=== PATIENT | male | born 1985 | race African-American/Black ===

== ENCOUNTER 2022-05-22 05:22 | Emergency (ER) | payer OTHER, SELFPAY ==
[2022-05-22] MEDS ORDERED: Ketorolac Tromethamine 30 MG/ML VIAL ONE (06:37)
== END 2022-05-22 07:23 | disposition home or self-care (01) ==
LOC: ERS 05:22
DX: R51.9 Headache, unspecified (principal); F17.210 Nicotine dependence, cigarettes, uncomplicated
CPT/HCPCS: 70450; 96365; 96375; J1885

== ENCOUNTER 2022-08-17 18:19 | Emergency (ER) | payer SELFPAY ==
[2022-08-17 21:40] LABS: #Basophils 0.1 thou/uL (0.0-0.2); #Eosinphils 0.3 thou/uL (0.0-0.7); #Monocytes 0.6 thou/uL (0.11-0.59); #Neutrophils 3.8 thou/uL (1.40-6.50); %Basophils 1.1 % (0.0-1.0); %Eosinophils 4.4 % (0.0-10.0); %Lymphocytes 38.7 % (21.0-51.0); %Monocytes 7.7 % (0.0-10.0); %Neutrophils 48.2 % (42.0-75.0); Hemoglobin 15.3 g/dL (14.0-18.0); Mean Corpuscular HGB CONC 35.9 g/dL (32.0-36.0); Mean Corpuscular Hemoglobin 32.3 pg (27.0-31.0); Mean Platelet Volume 8.5 fL (7.4-10.4); Platelet Count 230 10x3/uL (130-400); RBC Distribution Width 12.7 % (11.5-14.5); Red Blood Cell (RBC) Count 4.74 mill/uL (4.70-6.10); White Blood Cell (WBC) Count 7.8 10x3/uL (4.8-10.8)
[2022-08-17 21:59] LABS: ALT (SGPT) 17 U/L (8-55); AST (SGOT) 22 U/L (5-34); Albumin 3.9 g/dL (3.5-5.0); Alkaline Phosphatase 65 U/L (40-110); Anion Gap 12 mmol/L (10-20); BUN (Urea Nitrogen) 15 mg/dL (8.9-20.6); Bilirubin, Total 0.3 mg/dL (0.2-1.2); CK (CPK) 256 U/L (30-200); Calc. Creatinine Clearance 0 mL/min (70-130); Calcium 9.1 mg/dL (7.8-10.44); Carbon Dioxide 20 mmol/L (22-29); Chloride 109 mmol/L (98-107); Estimated GFR 87; Globulin 1.8 g/dL (2.4-3.5); Glucose 113 mg/dL (70-105); Potassium 3.8 mmol/L (3.5-5.1); Protein, Total 5.7 g/dL (6.0-8.3); Sodium 137 mmol/L (136-145)
== END 2022-08-17 22:58 | disposition home or self-care (01) ==
LOC: ERS 18:19
DX: G56.03 Carpal tunnel syndrome, bilateral upper limbs (principal)
CPT/HCPCS: 36415; 80053; 82550; 83735; 85025; 99284

== ENCOUNTER 2022-12-20 20:50 | Emergency (ER) | payer SELFPAY ==
[2022-12-20] MEDS ORDERED: Lorazepam 1 MG TAB ONE (22:17)
== END 2022-12-20 22:29 | disposition home or self-care (01) ==
LOC: ERS 20:50
DX: F43.0 Acute stress reaction (principal); F17.210 Nicotine dependence, cigarettes, uncomplicated
CPT/HCPCS: 99283

== ENCOUNTER 2023-06-02 07:02 | Emergency (ER) | payer SELFPAY ==
[2023-06-02] MEDS ORDERED: Cephalexin 250 MG CAP ONE (07:42)
[2023-06-02] MEDS ORDERED: Sulfameth/Trimethoprim DS 800-160mg TAB ONE (07:42)
== END 2023-06-02 07:49 | disposition home or self-care (01) ==
LOC: ERS 07:02
DX: L03.011 Cellulitis of right finger (principal); F17.210 Nicotine dependence, cigarettes, uncomplicated
CPT/HCPCS: 99283

== ENCOUNTER 2023-09-22 15:28 | Emergency (ER) | payer SELFPAY | END 2023-09-22 15:42 | LOC: ERS 15:28 | DX: Z53.21 Procedure and treatment not carried out due to patient leaving prior to being seen by health care provider (principal) ==

== ENCOUNTER 2024-04-25 12:55 | Emergency (ER) | payer SELFPAY ==
[2024-04-25] MEDS ORDERED: Ketorolac Tromethamine 30 MG (1 mL) VIAL ONE (14:51)
[2024-04-25] MEDS ORDERED: HYDROcodone/Acetaminophen 10/325 mg Tablet ONE (14:51)
== END 2024-04-25 16:44 | disposition home or self-care (01) ==
LOC: ERS 12:55
DX: S52.572A Other intraarticular fracture of lower end of left radius, initial encounter for closed fracture (principal); S52.042A Displaced fracture of coronoid process of left ulna, initial encounter for closed fracture; S09.90XA Unspecified injury of head, initial encounter; T14.8XXA Other injury of unspecified body region, initial encounter; F17.210 Nicotine dependence, cigarettes, uncomplicated; Y04.8XXA Assault by other bodily force, initial encounter
CPT/HCPCS: 29125; 70450; 70486; 72125; 72220; 96372; J1885

== ENCOUNTER 2024-08-10 19:35 | Inpatient (IN) | payer SELFPAY ==
[2024-08-10] MEDS ORDERED: Ketamine In 0.9 % NaCl 50 MG/5 ML SYRINGE ONE (19:47)
[2024-08-10 20:13] LABS: #Basophils 0.13 10x3/uL (0.0-0.2); %Basophils 1.1 % (0.0-1.0); %Eosinophils 2.9 % (0.0-10.0); %Lymphocytes 39.7 % (21.0-51.0); %Monocytes 8.6 % (0.0-10.0); %Neutrophils 47.1 % (42.0-75.0); Hematocrit 45.5 % (42.0-52.0); Hemoglobin 16.7 g/dL (14.0-18.0); Mean Corpuscular HGB CONC 36.7 g/dL (32.0-36.0); Mean Corpuscular Hemoglobin 30.5 pg (27.0-31.0); Mean Corpuscular Volume 83.2 fL (78.0-98.0); Mean Platelet Volume 10.8 fL (7.4-10.4); Platelet Count 242 10x3/uL (130-400); RBC Distribution Width 13.2 % (11.5-14.5); Red Blood Cell (RBC) Count 5.47 mill/uL (4.70-6.10)
[2024-08-10] MEDS ORDERED: Morphine 4 MG/ML VIAL SLOW IVP PRN (20:14)
[2024-08-10] MEDS ORDERED: Ondansetron ODT 4 MG TAB PO PRN (20:14)
[2024-08-10] MEDS ORDERED: Morphine 2 MG/ML VIAL SLOW IVP PRN (20:14)
[2024-08-10] MEDS ORDERED: Sodium Chloride 0.9% 1,000 ML IV SCH (20:15)
[2024-08-10] MEDS ORDERED: traMADol HCl 50 MG TAB PO PRN (20:16)
[2024-08-10 20:21] LABS: Alcohol 204.3 mg/dL (Less than 10)
[2024-08-10 20:24] LABS: ALT (SGPT) 13 U/L (Less than 45); AST (SGOT) 28 U/L (11-34); Albumin 4.7 g/dL (3.1-4.5); Alkaline Phosphatase 64 U/L (40-110); Anion Gap 19 mmol/L (10-20); BUN (Urea Nitrogen) 13 mg/dL (8.9-20.6); Bilirubin, Total 0.5 mg/dL (0.3-1.2); Calc. Creatinine Clearance 0 mL/min (70-130); Calcium 9.7 mg/dL (7.8-10.44); Carbon Dioxide 20 mmol/L (22-29); Chloride 105 mmol/L (98-107); Estimated GFR 74; Globulin 2.7 g/dL (2.4-3.5); Glucose 89 mg/dL (70-105); Lipase 12 U/L (8-78); Potassium 3.7 mmol/L (3.5-5.1); Protein, Total 7.4 g/dL (6.0-8.3); Sodium 140 mmol/L (136-145)
[2024-08-10 20:27] LABS: PTT 28.7 sec (22.9-36.1); Prothrombin Time 13.2 sec (12.0-14.7)
[2024-08-10 20:29] LABS: Troponin I Less than 0.010 ng/mL (< 0.028)
[2024-08-10] MEDS ORDERED: Fentanyl 100 MCG/2 ML VIAL ONE (20:30)
[2024-08-10 20:33] LABS: Bacteria/HPF None Seen HPF (None Seen); Bilirubin Negative (Negative); Blood, Urine Negative (Negative); CAUTI Indications for Culture Alt mental st,lethar; Clarity Clear (Clear); Glucose, Urine (Dipstick) Normal (Negative); Ketone, Urine Negative (Negative); Leukocyte 25 Leu/uL (Negative); Nitrite Negative (Negative); Protein, Urine (Dipstick) Negative (Neg-Trace); RBC/HPF 0-3 HPF (0-3); Specific Gravity, Urine 1.019 (1.002-1.036); Squamous Epithelial 0-3 HPF (0-3); Urobilinogen Normal mg/dL (Less than 2); WBC/HPF 0-3 HPF (0-3)
[2024-08-10] MEDS ORDERED: Promethazine HCl 25 MG/ML VIAL IM PRN (20:36)
[2024-08-10] MEDS ORDERED: diphenhydrAMINE 25 MG CAP PO PRN (20:36)
[2024-08-10] MEDS ORDERED: diphenhydrAMINE 50 MG/ML VIAL IM PRN (20:36)
[2024-08-10] MEDS ORDERED: Ondansetron PF 4 MG/2 ML Vial IVP PRN (20:36)
[2024-08-10] MEDS ORDERED: Naloxone HCl 0.4 mg/ml Vial IV PRN (20:36)
[2024-08-10 20:41] LABS: Amphetamine Negative (Negative); Barbiturates Screen Negative (Negative); Benzodiazepine Screen Negative (Negative); Cocaine Metabolite Screen PRELIM POSITIVE (Negative); Methadone Negative (Negative); Methamphetamine Negative (Negative); Opiate Screen Negative (Negative); Oxycodone Screen Negative (Negative); Phencyclidine (PCP) PRELIM POSITIVE (Negative); THC/Cannabinoid Screen PRELIM POSITIVE (Negative); Tricyclic Screen Negative (Negative); Urine Culture Reflex No No
[2024-08-10] MEDS ORDERED: Communication Order-Pharmacy FS SCH (20:45)
[2024-08-10 21:04] VITALS: BMI 35.2
[2024-08-10] MEDS: Ketorolac Tromethamine 30 MG (1 mL) VIAL IVP SCH (21:15)
[2024-08-10] MEDS: Famotidine/PF 20 mg/2ml Vial SLOW IVP SCH (21:15)
[2024-08-10] MEDS: CEFAZOLIN 2 GM in Sodium Chloride 0.9% 100 ML IVPB SCH (21:16)
[2024-08-10] MEDS: Senokot S 8.6-50 MG TAB PO SCH (21:16)
[2024-08-10] MEDS: Acetaminophen 325 MG TAB PO SCH (21:16)
[2024-08-10] MEDS: Lactated Ringer's 1,000 ML IV SCH (21:17)
[2024-08-10] MEDS: HYDROmorphone/PF 10 MG in Sodium Chloride 0.9% 99 ML IV PRN (21:57)
[2024-08-10] MEDS: Gentamicin 430 MG in Sodium Chloride 0.9% 100 ML IVPB SCH (22:05)
[2024-08-10] MEDS ORDERED: traMADol HCl 50 MG TAB PO SCH (23:59)
[2024-08-11] MEDS: Ketorolac Tromethamine 30 MG (1 mL) VIAL IVP SCH (00:12)
[2024-08-11] MEDS ORDERED: fentaNYL 50 mcg/mL 1 mL Vial ONE (09:08)
[2024-08-11] MEDS ORDERED: Labetalol HCl 100 MG/20 ML VIAL SLOW IVP PRN (09:36)
[2024-08-11] MEDS ORDERED: Dexamethasone 20 MG/5 ML VIAL ONE (10:00)
[2024-08-11] MEDS ORDERED: Ondansetron PF 4 MG/2 ML Vial ONE (10:00)
[2024-08-11] MEDS ORDERED: Lidocaine 2% PF 5 ML VIAL ONE (10:00)
[2024-08-11] MEDS ORDERED: PROPOFOL 20 ML ONE ×2 (10:00→10:20)
[2024-08-11] MEDS ORDERED: fentaNYL PF 100 MCG/2 ML SYRINGE ONE (10:00)
[2024-08-11] MEDS ORDERED: Midazolam HCl 2 mg/2 ml Vial ONE (10:00)
[2024-08-11] MEDS ORDERED: Glycopyrrolate 0.2 MG/ML 5 ML SYRINGE ONE (10:27)
[2024-08-11] MEDS ORDERED: CEFAZOLIN 1 GM VIAL ONE (10:40)
[2024-08-11] MEDS ORDERED: PHENYLEPHRINE-NS 100 MCG/ML 10 ML SYRINGE ONE ×2 (10:45→11:00)
[2024-08-11 13:42] LABS: #Basophils 0.07 10x3/uL (0.0-0.2); %Basophils 0.5 % (0.0-1.0); %Eosinophils 0.4 % (0.0-10.0); %Lymphocytes 7.5 % (21.0-51.0); Hematocrit 41.8 % (42.0-52.0); Hemoglobin 15.3 g/dL (14.0-18.0); Mean Corpuscular HGB CONC 36.6 g/dL (32.0-36.0); Mean Corpuscular Hemoglobin 30.8 pg (27.0-31.0); Mean Corpuscular Volume 84.1 fL (78.0-98.0); Mean Platelet Volume 11.4 fL (7.4-10.4); Platelet Count 216 10x3/uL (130-400); RBC Distribution Width 13.2 % (11.5-14.5); Red Blood Cell (RBC) Count 4.97 mill/uL (4.70-6.10)
[2024-08-11 13:56] LABS: Anion Gap 13 mmol/L (10-20); BUN (Urea Nitrogen) 11 mg/dL (8.9-20.6); Calc. Creatinine Clearance 128 mL/min (70-130); Calcium 8.8 mg/dL (7.8-10.44); Carbon Dioxide 24 mmol/L (22-29); Chloride 104 mmol/L (98-107); Estimated GFR 79; Glucose 95 mg/dL (70-105); Potassium 4.3 mmol/L (3.5-5.1); Sodium 137 mmol/L (136-145)
[2024-08-11] MEDS ORDERED: CEFAZOLIN 3 GM in Sodium Chloride 0.9% 100 ML IVPB SCH (14:00)
[2024-08-11] MEDS: hydrALAZINE 20 MG/ML VIAL SLOW IVP PRN (14:46)
[2024-08-11] MEDS: Polyethylene Glycol 3350 17 GM Packet PO SCH (17:31)
[2024-08-11] MEDS: CEFAZOLIN 2 GM in Sodium Chloride 0.9% 100 ML IVPB SCH (17:40)
[2024-08-11] MEDS: diphenhydrAMINE 50 MG/ML VIAL IVP PRN (20:41)
[2024-08-12 04:57] LABS: #Basophils 0.05 10x3/uL (0.0-0.2); %Basophils 0.4 % (0.0-1.0); %Eosinophils 0.5 % (0.0-10.0); %Lymphocytes 15.8 % (21.0-51.0); %Monocytes 11.9 % (0.0-10.0); %Neutrophils 71.1 % (42.0-75.0); Hematocrit 37.5 % (42.0-52.0); Hemoglobin 13.6 g/dL (14.0-18.0); Mean Corpuscular HGB CONC 36.3 g/dL (32.0-36.0); Mean Corpuscular Hemoglobin 30.6 pg (27.0-31.0); Mean Corpuscular Volume 84.3 fL (78.0-98.0); Mean Platelet Volume 10.5 fL (7.4-10.4); Platelet Count 199 10x3/uL (130-400); RBC Distribution Width 12.9 % (11.5-14.5); Red Blood Cell (RBC) Count 4.45 mill/uL (4.70-6.10)
[2024-08-12 05:10] LABS: Anion Gap 12 mmol/L (10-20); BUN (Urea Nitrogen) 12 mg/dL (8.9-20.6); Calc. Creatinine Clearance 146 mL/min (70-130); Calcium 8.6 mg/dL (7.8-10.44); Carbon Dioxide 25 mmol/L (22-29); Chloride 103 mmol/L (98-107); Estimated GFR 93; Glucose 137 mg/dL (70-105); Potassium 3.9 mmol/L (3.5-5.1); Sodium 136 mmol/L (136-145)
[2024-08-12] MEDS: Enoxaparin 40 MG (0.4 mL) SYRINGE SC SCH (10:21)
[2024-08-13] MEDS: Enoxaparin 40 MG (0.4 mL) SYRINGE SC SCH (08:36)
[2024-08-13] MEDS: Amlodipine 5 MG TAB PO SCH (16:04)
[2024-08-14] MEDS: Amlodipine 5 MG TAB PO SCH (07:38)
[2024-08-14] MEDS ORDERED: CEFAZOLIN 2 GM VIAL ONE (07:44)
[2024-08-14] MEDS ORDERED: Midazolam HCl 2 mg/2 ml Vial ONE (08:12)
[2024-08-14] MEDS ORDERED: fentaNYL PF 100 MCG/2 ML SYRINGE ONE (08:12)
[2024-08-14] MEDS ORDERED: PROPOFOL 20 ML ONE ×2 (08:12→08:19)
[2024-08-14] MEDS ORDERED: Lidocaine 1% PF 5 ML VIAL ONE (08:12)
[2024-08-14] MEDS ORDERED: fentaNYL 50 mcg/mL 1 mL Vial SLOW IVP PRN (08:15)
[2024-08-14] MEDS ORDERED: Ondansetron PF 4 MG/2 ML Vial IVP PRN (08:15)
[2024-08-14] MEDS ORDERED: Promethazine HCl 25 MG/ML VIAL IM PRN ×2 (08:15→08:52)
[2024-08-14] MEDS ORDERED: HYDROcodone/Acetaminophen 10/325 mg Tablet PO PRN (08:15)
[2024-08-14] MEDS ORDERED: traMADol HCl 50 MG TAB PO PRN ×2 (08:15)
[2024-08-14] MEDS ORDERED: Zolpidem Tartrate 5 MG TAB PO PRN (08:15)
[2024-08-14] MEDS ORDERED: Ropivacaine 0.2% 550 ML 550 ML NERVE BLCK SCH (08:15)
[2024-08-14] MEDS ORDERED: Ropivacaine 0.5% HCl/PF (150 MG/30 ML VIAL) ONE (08:20)
[2024-08-14] MEDS ORDERED: Dexamethasone 20 MG/5 ML VIAL ONE (08:42)
[2024-08-14] MEDS ORDERED: Ondansetron PF 4 MG/2 ML Vial ONE (08:42)
[2024-08-14] MEDS ORDERED: fentaNYL 50 mcg/mL 1 mL Vial ONE (08:44)
[2024-08-14] MEDS ORDERED: Dexmedetomidine 200 MCG/2 ML VIAL ONE (08:45)
[2024-08-14] MEDS ORDERED: Ondansetron HCl/PF 4 MG/2 ML Vial IVP PRN (08:52)
[2024-08-14] MEDS ORDERED: ePHEDrine/0.9% NaCl/PF SYRINGE 50 mg/10 ml ONE (09:27)
[2024-08-14] MEDS: CEFAZOLIN 2 GM in Sodium Chloride 0.9% 100 ML IVPB SCH (14:54)
[2024-08-15 06:47] LABS: #Basophils 0.04 10x3/uL (0.0-0.2); %Basophils 0.3 % (0.0-1.0); %Eosinophils 1.2 % (0.0-10.0); %Lymphocytes 17.2 % (21.0-51.0); %Monocytes 8.2 % (0.0-10.0); %Neutrophils 72.7 % (42.0-75.0); Hematocrit 35.6 % (42.0-52.0); Hemoglobin 13.1 g/dL (14.0-18.0); Mean Corpuscular HGB CONC 36.8 g/dL (32.0-36.0); Mean Corpuscular Hemoglobin 30.9 pg (27.0-31.0); Platelet Count 241 10x3/uL (130-400); Red Blood Cell (RBC) Count 4.24 mill/uL (4.70-6.10)
[2024-08-15 07:21] LABS: Anion Gap 13 mmol/L (10-20); BUN (Urea Nitrogen) 12 mg/dL (8.9-20.6); Calc. Creatinine Clearance 202 mL/min (70-130); Calcium 9.5 mg/dL (7.8-10.44); Carbon Dioxide 26 mmol/L (22-29); Chloride 102 mmol/L (98-107); Estimated GFR 118; Glucose 111 mg/dL (70-105); Potassium 3.7 mmol/L (3.5-5.1); Sodium 137 mmol/L (136-145)
[2024-08-15] MEDS: HYDROcodone/Acetaminophen 10/325 mg Tablet PO PRN (09:00)
[2024-08-15 11:45] VITALS: BMI 35.2
[2024-08-15 16:57] VITALS: BP 164/92; TEMP 97.8
[2024-08-15] MEDS ORDERED: Enoxaparin 40 MG (0.4 mL) SYRINGE SC SCH (21:00)
== END 2024-08-15 18:10 | disposition home or self-care (01) | DRG 494 ==
LOC: ERS 19:35 → SURG B 20:14
PROVIDERS: ADMIT Surgery; ATTEND Surgery
PROC: 0T9B70Z Drainage of Bladder with Drainage Device, Via Natural or Artificial Opening (ICD-10-PCS; 2024-08-10)
PROC: 0QSJ04Z Reposition Right Fibula with Internal Fixation Device, Open Approach (ICD-10-PCS; principal; 2024-08-11)
PROC: 0QSJ04Z Reposition Right Fibula with Internal Fixation Device, Open Approach (ICD-10-PCS; 2024-08-14)
PROC: 0SPFX5Z Removal of External Fixation Device from Right Ankle Joint, External Approach (ICD-10-PCS; 2024-08-14)
DX: S82.301B Unspecified fracture of lower end of right tibia, initial encounter for open fracture type I or II (principal); S82.831A Other fracture of upper and lower end of right fibula, initial encounter for closed fracture; V09.20XA Pedestrian injured in traffic accident involving unspecified motor vehicles, initial encounter; F10.129 Alcohol abuse with intoxication, unspecified; Z79.899 Other long term (current) drug therapy; F32.A Depression, unspecified; F17.210 Nicotine dependence, cigarettes, uncomplicated
CPT/HCPCS: 27840; 36415; 80048; 80053; 80306; 80307; 81001; 83690; 84484; 85025; 85610; 85730; 86850; 86900; 86901; 90471; 94760; 96374; 99152; 99153; A4306; C1713; C1781; G0390; J0360; J0690; J1100; J1171; J1200; J1580; J1650; J1885; J2250; J2405; J2704; J2795; J3010; J3490; J7120